=== PATIENT | female | born 1980 | race Two or more races ===

== ENCOUNTER → 2024-08-29 | Outpatient (CLI) | payer BC, SELFPAY ==
--- NOTE | 2024-08-29 09:17 | XR_ITS ---
Examination: Shoulder,left, 3 views Technique: Shoulder AP internal rotation, AP external rotation, Y view shoulder, 3 views Exam date and time :August 29, 2024 0956 hours INDICATIONS: Left shoulder pain beginning 2 months ago FINDINGS: Prominent left shoulder calcific tendinitis No fracture or dislocation Minimal 2 mm AC joint offset IMPRESSION: Prominent left shoulder calcific tendinitis
== END | disposition home or self-care (01) ==
LOC: CDIM 09:12
PROVIDERS: PCP Obstetrics & Gynecology; Referring Provider Obstetrics & Gynecology; Visit Provider Obstetrics & Gynecology
DX: M75.32 Calcific tendinitis of left shoulder (principal)
CPT/HCPCS: 73030